=== PATIENT | female | born 1985 | race Caucasian/White ===

== ENCOUNTER 2019-05-03 11:18 | Outpatient (CLI) | payer SELFPAY ==
[2019-05-03 12:22] VITALS: BP 127/77; PULSE 81; RESP 16; TEMP 97.5
[2019-05-03] MEDS ORDERED: BETAMET ACET-BETAMETH SOD PHOS 6 MG/ML VIAL IM SCH (13:30)
--- NOTE | 2019-05-12 13:29 | P.MSEPDOC ---
Presenting Problems - Arrival Data Date of Arrival on Unit: 05/03/19 Time of Arrival on Unit: 11:18 Mode of Transport: Ambulatory - Complaint OB-Reason for Admission/Chief Complaint: Possible Onset of Labor Medical History - Information : 1 Para: 0 Term: 0 : 0 Abortions: Spontaneous or Elective: 0 Number of Living Children: 0 - Gestational Age Gestational Age by GREGORIA (wks/days): 35 Weeks and 0 Days Review of Systems - Review of Systems Constitutional: No problems Breast: No problems ENT: No problems Cardiovascular: No problems Respiratory: No problems Gastrointestinal: No problems Genitourinary: No problems Musculoskeletal: No problems Neurological: No problems Skin: No problems Vital Signs - Temperature Temperature: 97.5 F Temperature Source: Oral - Pulse Right Brachial Pulse Rate: 81 Pulse Assessment Method: Automatic Cuff - Respirations Respiratory Rate: 16 Oxygen Delivery Method: Room Air - Blood Pressure Right Arm Blood Pressure: 127/77 Blood Pressure Mean: 93 Blood Pressure Source: Automatic Cuff Medical Screen Scoring (Pre) - Cervical Exam Dilation: 0 cm = 0 Membranes: Intact - Uterine Contractions Frequency: < 36 weeks = 6 Duration: N/A - Maternal Vital Signs Maternal Temperature: N/A Maternal Blood Pressure: N/A Signs of Preeclampsia: N/A Maternal Respirations: N/A - Maternal Trauma Maternal Trauma: N/A - Assessment - Baby A Baseline FHR: 130 Heart Rate - NICHD Category: Category I (Normal) = 0 NST: Reactive Position: N/A Station: N/A - Total Score - Baby A Total Score - Baby A: 6 - Total Score - Baby B Total Score - Baby B: 6 - Total Score - Baby C Total Score - Baby C: 6 - Level of Risk - Baby A Level of Risk - Baby A: Medium (6-9) - Level of Risk - Baby B Level of Risk - Baby B: Medium (6-9) - Level of Risk - Baby C Level of Risk - Baby C: Medium (6-9) Physician Notification (Pre) - Physician Notified Spoke With: Dr. Campos New Order Received: No - Notification Comment Comment: FFN positive result from lab. no change in cervix and pt 35 weeks gestation. may go home and follow up with Dr. Campos tomorrow Physician Notification (Post) - Physician Notified Physician Notified Date: 05/03/19 Physician Notified Time: 13:10 Spoke With: Dr Campos New Order Received: Yes - Notification Comment Comment: FFN positive no change in cervix pt received 1 dose of clestone and to return for second dose in 24 hrs and to keep scheduled appoinment with Dr Campos tomorrow Disposition - Disposition OB Disposition: Discharge to home Discharge Date: 05/03/19 Discharge Time: 13:30 I agree with the RN Medical Screening Exam: Yes Risk & Benefit of care provided described in d/c instruction: Yes Diagnosis: FALSE LABOR BEFORE 37 COMPLETED WEEKS OF GEST, THIRD TRI
== END 2019-05-03 13:30 | disposition home or self-care (01) ==
LOC: FBPOP 11:18
PROVIDERS: ATTEND Obstetrics & Gynecology
DX: O47.03 False labor before 37 completed weeks of gestation, third trimester (principal); Z3A.35 35 weeks gestation of pregnancy
CPT/HCPCS: 59025; 99214; 96372; 82731; J0702

== ENCOUNTER 2019-05-04 13:31 | Outpatient (CLI) | payer SELFPAY ==
[2019-05-04] MEDS ORDERED: BETAMET ACET-BETAMETH SOD PHOS 6 MG/ML VIAL IM SCH (14:00)
== END 2019-05-04 14:20 | disposition home or self-care (01) ==
LOC: FBPOP 13:31
PROVIDERS: ATTEND Obstetrics & Gynecology
DX: O60.00 Preterm labor without delivery, unspecified trimester (principal); Z3A.00 Weeks of gestation of pregnancy not specified
CPT/HCPCS: 96372; J0702

== ENCOUNTER 2019-05-13 11:27 | Outpatient (CLI) | payer SELFPAY ==
[2019-05-13 13:09] VITALS: BP 127/77; PULSE 89; RESP 16; TEMP 97.5
--- NOTE | 2019-05-22 08:05 | P.MSEPDOC ---
Presenting Problems - Arrival Data Date of Arrival on Unit: 05/13/19 Time of Arrival on Unit: 11:27 Mode of Transport: Ambulatory - Complaint OB-Reason for Admission/Chief Complaint: Possible Onset of Labor, Vaginal Bleeding Medical History - Information : 2 Para: 0 Term: 0 : 0 Abortions: Spontaneous or Elective: 0 Number of Living Children: 0 - Gestational Age Gestational Age by GREGORIA (wks/days): 36 Weeks and 3 Days Review of Systems - Review of Systems Constitutional: No problems Breast: No problems ENT: No problems Cardiovascular: No problems Respiratory: No problems Gastrointestinal: No problems Genitourinary: No problems Musculoskeletal: No problems Neurological: No problems Skin: No problems Vital Signs - Temperature Temperature: 97.5 F Temperature Source: Temporal Artery Scan - Pulse Right Brachial Pulse Rate: 89 Pulse Assessment Method: Automatic Cuff - Respirations Respiratory Rate: 16 Oxygen Delivery Method: Room Air O2 Sat by Pulse Oximetry: 98 - Blood Pressure Right Arm Blood Pressure: 127/77 Blood Pressure Mean: 93 Blood Pressure Source: Automatic Cuff Medical Screen Scoring (Pre) - Cervical Exam Dilation: 1-3 cm = 1 Membranes: Intact - Uterine Contractions Frequency: > 5 minutes apart = 1 Duration: N/A Intensity: N/A - Maternal Vital Signs Maternal Temperature: N/A Maternal Blood Pressure: N/A Signs of Preeclampsia: N/A Maternal Respirations: N/A - Assessment - Baby A Baseline FHR: 145 Heart Rate - NICHD Category: Category I (Normal) = 0 NST: Reactive Position: N/A Station: N/A - Total Score - Baby A Total Score - Baby A: 2 - Total Score - Baby B Total Score - Baby B: 2 - Total Score - Baby C Total Score - Baby C: 2 - Level of Risk - Baby A Level of Risk - Baby A: Low (0-5) - Level of Risk - Baby B Level of Risk - Baby B: Low (0-5) - Level of Risk - Baby C Level of Risk - Baby C: Low (0-5) Physician Notification (Pre) - Physician Notified Physician Notified Date: 05/13/19 Physician Notified Time: 12:08 New Order Received: Yes - Notification Comment Comment: Dr. Campos given report on pt in tr. Pt c/o. VS WNL. Vag exam of fingertip/thick/high. Orders recieved to perform vag exam after one hour. if no change to d/c pt to home. Disposition - Disposition OB Disposition: Discharge to home Discharge Date: 05/13/19 Discharge Time: 12:55 I agree with the RN Medical Screening Exam: Yes Risk & Benefit of care provided described in d/c instruction: Yes Diagnosis: FALSE LABOR AT OR AFTER 37 COMPLETED WEEKS OF GESTATION
== END 2019-05-13 12:55 | disposition home or self-care (01) ==
LOC: FBPOP 11:27
PROVIDERS: ATTEND Obstetrics & Gynecology
DX: O47.03 False labor before 37 completed weeks of gestation, third trimester (principal); Z3A.36 36 weeks gestation of pregnancy
CPT/HCPCS: 59025; 99213

== ENCOUNTER 2019-05-15 12:32 | Inpatient (IN) | payer OTHER ==
[2019-05-15] MEDS ORDERED: METHYLERGONOVINE 0.2 MG/ML 1 ML AMP IM PRN (13:26)
[2019-05-15] MEDS ORDERED: CLINDAMYCIN 900 MG in DEXTROSE 5% IN WATER 50 ML IVPB STA ×2 (13:26)
[2019-05-15] MEDS ORDERED: OXYTOCIN 10 UNIT/ML 1 ML VIAL IM PRN (13:26)
[2019-05-15] MEDS ORDERED: LIDOCAINE 0.5% (PF) 5 MG/ML (50 ML SDV) SQ PRN (13:26)
[2019-05-15] MEDS ORDERED: CARBOPROST TROMETHAMINE 250 MCG/ML 1 ML AMP IM PRN (13:26)
[2019-05-15] MEDS ORDERED: TERBUTALINE 1 MG/ML VIAL SQ PRN (13:26)
[2019-05-15] MEDS ORDERED: OXYTOCIN 30 UNITS/500 ML NS 30 UNIT in SALINE 1 500ML.BAG IV SCH (13:30)
[2019-05-15] MEDS: LACTATED RINGERS 1,000 ML IV SCH ×3 (13:43→21:18)
[2019-05-15 14:01] LABS: Basophils % (A) 0 %; Eosinophils # (A) 0.2 k/uL (0-0.7); Eosinophils % (A) 1 %; HCT 38.2 % (34.0-46.0); HGB 12.3 gm/dL (11.4-16.0); Lymphocytes # (A) 1.9 k/uL (1.0-4.8); Lymphocytes % (A) 10 %; MCH 29.1 pg (25.0-35.0); MCHC 32.3 g/dL (31.0-37.0); MCV 90.2 fL (80.0-100.0); Mean Platelet Volume 9.6; Monocytes % (A) 5 %; Neutrophils # (A) 15.1 k/uL (1.3-7.7); Neutrophils % (A) 82 %; Platelet Count 264 k/uL (150-450); RBC 4.23 m/uL (3.80-5.40); RDW 13.1 % (11.5-15.5); WBC 18.5 k/uL (3.8-10.6)
[2019-05-15] MEDS ORDERED: BUTORPHANOL 1 MG/ML 1 ML VIAL IV PRN (18:25)
[2019-05-15] MEDS ORDERED: ROPIVACAINE 100 MG, fentaNYL (PF) 200 MCG in SODIUM CHLORIDE 0.9% 76 ML EPIDURAL ONE (20:51)
[2019-05-15] MEDS: CLINDAMYCIN 900 MG in DEXTROSE 5% IN WATER 50 ML IVPB SCH ×2 (21:23)
--- NOTE | 2019-05-16 00:28 | P.HPOB ---
History of Present Illness H&P Date: 05/15/19 Chief Complaint: SROM 33 year old presents at 35 weeks and 5 days with spontaneous rupture membranes. Her cervix is 1 cm dilated, 90% effaced, and -2 station. She is co ntracting irregularly and hurting with them. heart tones 130 with moderate variability and reactive. 2 weeks ago she did have a positive fibronectin and was given a course of Celestone. Review of Systems All systems: negative Constitutional: Denies chills, Denies fever Eyes: denies blurred vision, denies pain Ears, nose, mouth and throat: Denies headache, Denies sore throat Cardiovascular: Denies chest pain, Denies shortness of breath Respiratory: Denies cough Gastrointestinal: Denies abdominal pain, Denies diarrhea, Denies nausea, Denies vomiting Genitourinary: Denies dysuria, Denies hematuria Musculoskeletal: Denies myalgias Integumentary: Denies pruritus, Denies rash Neurological: Denies numbness, Denies weakness Psychiatric: Denies anxiety, Denies depression Endocrine: Denies fatigue, Denies weight change Past Medical History Past Medical History: Asthma Additional Past Medical History / Comment(s): Obstetric history: First was a elective termination. This is her second and she's had care with Dr. Benítez since the first trimester. Blood type is A+, antibodies negative, rubella immune, RPR nonreactive, hepatitis B negative, HIV nonreactive, toxoplasmosis negative. Normal anatomy ultrasound normal 1 hour glucose tolerance test. History of Any Multi-Drug Resistant Organisms: None Reported Past Surgical History: Bowel Resection, Orthopedic Surgery Past Anesthesia/Blood Transfusion Reactions: No Reported Reaction Past Psychological History: No Psychological Hx Reported Smoking Status: Current every day smoker Past Drug Use History: Heroin Additional Drug Use History / Comment(s): Hx of heroin use 7 years ago - Past Family History Mother Family Medical History: Cancer, Diabetes Mellitus Medications and Allergies Home Medications Medication Instructions Recorded Confirmed Type Omeprazole Magnesium [PriLOSEC OTC] 20 mg PO ONCE 05/03/19 05/15/19 History Pnv No.95/Ferrous Fum/Folic AC 1 each PO DAILY 05/03/19 05/15/19 History [ Multivitamin Tablet] Allergies Allergy/AdvReac Type Severity Reaction Status Date / Time amoxicillin Allergy Rash/Hives Verified 05/13/19 11:39 Latex, Natural Rubber Allergy Rash/Hives Verified 05/13/19 11:39 Exam Osteopathic Statement: *. No significant issues noted on an osteopathic structural exam other than those noted in the History and Physical/Consult. Vital Signs Temp Pulse Resp BP Pulse Ox 05/15/19 13:43 97.2 F L 83 16 133/68 98 05/15/19 13:24 97.2 F L 83 16 133/68 Intake and Output 05/15/19 05/15/19 05/16/19 14:59 22:59 06:59 Intake Total 2000 Output Total 200 Balance 1800 Intake: Intake, IV Titration 2000 Amount Lactated Ringers 1,000 ml 2000 @ 125 mls/hr IV .Q8H LOGAN Rx#:[id number] Output: Urine 200 Other: # Voids 1 1 Weight 62.596 kg Heart: Regular rate and rhythm Lungs: Clear to auscultation bilaterally Abdomen: Soft, nontender Extremities: Negative Homans sign Results Result Diagrams: 05/15/19 13:40 Abnormal Lab Results - Last 24 Hours (Table) 05/15/19 Range/Units 13:40 WBC 18.5 H (3.8-10.6) k/uL Neutrophils # 15.1 H (1.3-7.7) k/uL Assessment and Plan (1) Spontaneous rupture of membranes Current Visit: Yes Status: Acute Code(s): LKN7281 - SNOMED Code(s): 991196109 (2) labor Current Visit: Yes Status: Acute Code(s): O60.00 - LABOR WITHOUT DELIVERY, UNSPECIFIED TRIMESTER SNOMED Code(s): 1089477 Plan: 1. I'll give her antibiotics for GBS prophylaxis given the status 2. Expectant management with Pitocin augmentation if necessary 3. Anticipate normal vaginal delivery
[2019-05-16] MEDS: LACTATED RINGERS 1,000 ML IV SCH (01:47)
[2019-05-16] MEDS ORDERED: CITRIC ACID-SODIUM CITRATE 15 ML CUP PO ONE (04:25)
[2019-05-16] MEDS: CLINDAMYCIN 900 MG in DEXTROSE 5% IN WATER 50 ML IVPB SCH ×2 (04:34)
[2019-05-16] MEDS ORDERED: ROPIVACAINE 5MG/ML 20ML VIAL ONE (04:55)
[2019-05-16] MEDS ORDERED: fentaNYL (PF) 50 MCG/ML 5 ML AMP ONE (04:55)
[2019-05-16] MEDS ORDERED: ePHEDrine SULFATE/0.9% NACL/PF 50 MG/5 ML SYRINGE IV ONE (04:55)
[2019-05-16] MEDS ORDERED: ONDANSETRON 4 MG/2 ML VIAL ONE (04:55)
[2019-05-16] MEDS ORDERED: SODIUM CHLORIDE 0.9% 100 ML BAG ONE (04:55)
[2019-05-16] MEDS ORDERED: MORPHINE SULFATE (PF) 0.3 MG/0.3 ML SYR ONE (04:55)
[2019-05-16] MEDS ORDERED: ONDANSETRON 4 MG/2 ML VIAL IVP PRN (05:19)
[2019-05-16] MEDS ORDERED: diphenhydrAMINE 50 MG/ML 1 ML VIAL IVP PRN ×3 (05:19→05:39)
[2019-05-16] MEDS ORDERED: NALOXONE 0.4 MG/ML 1 ML VIAL IV PRN ×2 (05:19→05:39)
[2019-05-16] MEDS ORDERED: MORPHINE SULFATE 2 MG/ML SYRINGE IVP PRN (05:19)
[2019-05-16] MEDS ORDERED: diphenhydrAMINE 50 MG CAP PO PRN (05:39)
[2019-05-16] MEDS ORDERED: SIMETHICONE 80 MG CHEWABLE PO PRN (05:39)
[2019-05-16] MEDS ORDERED: LANOLIN CREAM 5 GM TUBE TOPICAL PRN (05:39)
[2019-05-16] MEDS ORDERED: ACETAMINOPHEN TAB 325 MG TAB PO PRN (05:39)
[2019-05-16] MEDS ORDERED: diphenhydrAMINE 25 MG CAP PO PRN (05:39)
[2019-05-16] MEDS ORDERED: METOCLOPRAMIDE 5 MG/ML 2 ML VIAL IVP PRN (05:39)
[2019-05-16] MEDS ORDERED: ZOLPIDEM 5 MG TAB PO PRN (05:39)
--- NOTE | 2019-05-16 05:44 | P.OP ---
Date of Procedure: 05/16/19 Preoperative Diagnosis: 1. at 35 weeks and 6 days 2. Spontaneous rupture membranes 3. labor 4. Arrest of descent Postoperative Diagnosis: 1. at 35 weeks and 6 days 2. Spontaneous rupture membranes 3. labor 4. Arrest of descent 5. Cephalopelvic disproportion Procedure(s) Performed: Primary low transverse Anesthesia: epidural Surgeon: Funmi Olivares [employer] Loan Processing Clerk #1: Lorraine Zhou Estimated Blood Loss (ml): 200 IV fluids (ml): 500 Urine output (ml): 500 Pathology: other (Placenta) Condition: stable Disposition: floor Indications for Procedure: 33-year-old presented at 35 weeks and 5 days with spontaneous rupture membranes around 11:00 in the morning. She presented in the afternoon and was 1 cm dilated, 90% effaced, and -2 station. She is mika irregularly. heart tones were 1:30 with moderate variability and reactive. She did start to make some cervical change but then Pitocin augmentation was also added. When she is uncomfortable at 3 cm she took an epidural and was very comfortable. Her cervix did dilate to 9/[address] this way for over 3 hours. We tried to push past this but she did have some decelerations and the head was not moving. Informed consent was obtained and section was called. Operative Findings: Viable Apgars 8, 9, weight 6 lbs. 2 oz. Description of Procedure: Patient was taken to the operating room where epidural anesthesia was found be adequate. She was prepped and draped in normal sterile fashion in dorsal supine position with a leftward tilt. Pfannenstiel skin incision was made the scalpel and carried through to the underlying layer of fascia with the scalpel. Fascia was incised in midline and carried bilaterally with the Govea scissors. The superior aspect of the fascial incision was grasped with [place] clamps elevated and the underlying rectus muscles dissected off with the Govea's. Attention was then turned to inferior aspect of same incision which in a similar fashion was grasped tented up and the underlying rectus muscles dissected off with the Govea's. The rectus muscles were the midline and the peritoneum was identified tented up and entered sharply with the scalpel. The incision was extended superiorly and inferiorly with good visualization of the bladder. The bladder blade was inserted and the vesicouterine peritoneum was incised the [place]zen[place]ums then carried bilaterally and bladder flap created digitally. A low transverse incision was then made on the uterus with the scalpel. This was carried bilaterally and digital manner. 's head delivered atraumatically, nose and mouth bulb suctioned, cord clamped and cut, infant handed off to waiting nurses. Apgars 8,9, weight 6 lbs. 2 oz. Placenta delivered manually, intact with three-vessel cord. The uterus is exteriorized and cleared of all clots and debris. The uterine incision was closed with 0 Vicryl in a running l ocked fashion. Second layer of the same sutures used in imbricating fashion to obtain excellent hemostasis. Bladder flap was then reapproximated using 2-0 Vicryl in a running fashion. Both ovaries and tubes appeared normal. The uterus was placed back into the abdomen. The peritoneum was reapproximated using 2-0 Vicryl in a running fashion. The muscles were reapproximated using 2- 0 Vicryl in interrupted fashion. The fascia was reapproximated using 0 Vicryl in a running fashion. The subcutaneous tissues closed with 3-0 Vicryl running fashion. The skin was closed gris. Patient tolerated the procedure well, sponge and instrument counts were correct times 2 and she was taken to the recovery room in stable condition.
[2019-05-16] MEDS ORDERED: OXYTOCIN 20 UNITS/1000 ML NS 1,000 ML IV SCH (05:45)
[2019-05-16] MEDS: SENNOSIDES-DOCUSATE SODIUM 1 EACH TAB PO SCH ×2 (08:35→20:21)
[2019-05-16] MEDS: KETOROLAC 30 MG/ML 1 ML VIAL IVP PRN ×2 (10:12→18:34)
[2019-05-16] MEDS: HYDROcodone/APAP 7.5-325MG 1 EACH TAB PO PRN (15:55)
[2019-05-17] MEDS: HYDROcodone/APAP 7.5-325MG 1 EACH TAB PO PRN (00:05)
[2019-05-17] MEDS: KETOROLAC 30 MG/ML 1 ML VIAL IVP PRN (02:57)
--- NOTE | 2019-05-17 06:49 | P.PN ---
Progress Note - Text Progress Note Date: 05/17/19 Patient doing well. Ambulating without weakness or paresthesia. Minimal headache. Pain controlled. + Pruritis VSS Back - spinal site c/d A/P POD#1 s/p with spinal duramorph - Continue Benadryl - Consider Atarax
[2019-05-17 07:10] LABS: Basophils # (A) 0.1 k/uL (0-0.2); Basophils % (A) 0 %; Eosinophils # (A) 0.2 k/uL (0-0.7); Eosinophils % (A) 1 %; HCT 31.4 % (34.0-46.0); HGB 10.6 gm/dL (11.4-16.0); Lymphocytes # (A) 1.9 k/uL (1.0-4.8); Lymphocytes % (A) 11 %; MCH 30.3 pg (25.0-35.0); MCHC 33.6 g/dL (31.0-37.0); Mean Platelet Volume 9.8; Monocytes # (A) 1.1 k/uL (0-1.0); Monocytes % (A) 7 %; Neutrophils # (A) 13.6 k/uL (1.3-7.7); Neutrophils % (A) 79 %; Platelet Count 198 k/uL (150-450); RBC 3.49 m/uL (3.80-5.40); WBC 17.1 k/uL (3.8-10.6)
[2019-05-17] MEDS: SENNOSIDES-DOCUSATE SODIUM 1 EACH TAB PO SCH (08:00)
[2019-05-17] MEDS ORDERED: Acetaminophen-Codeine 300-30mg TAB PO PRN (08:53)
--- NOTE | 2019-05-17 08:53 | P.PNOBGPC ---
Subjective - Subjective Principal diagnosis: S/P 1*LTCS POD #1 Interval history: Patient seen and examined. Denies nausea, vomiting, chest pain, sugars of breath or calf pain. Her pain is controlled and she is tolerating regular diet, passing flatus. She is ambulating and voiding without difficulty. Patient reports: Reports appetite normal, Reports voiding normally, Reports pain well controlled, Reports ambulating normally [place]: doing well Objective - Vital Signs Latest vital signs: Vital Signs Temp Pulse Resp BP Pulse Ox 05/17/19 00:00 98.3 F 72 16 118/64 99 05/16/19 20:00 98.2 F 78 16 116/62 100 05/16/19 18:00 16 97 05/16/19 16:00 98.1 F 84 16 105/61 96 05/16/19 14:00 16 96 05/16/19 12:00 97.9 F 76 16 102/63 100 05/16/19 10:19 98 05/16/19 10:00 16 - Exam Lungs: bilateral: normal Chest: Normal S1, Normal S2 Extremities: Present: normal Abdomen: Present: normal appearance, soft. Absent: distention, tenderness Incision: Present: normal, dry, intact Uterus: Present: normal, firm - Labs Labs: Abnormal Lab Results - Last 24 Hours (Table) 05/17/19 Range/Units 06:50 WBC 17.1 H (3.8-10.6) k/uL RBC 3.49 L (3.80-5.40) m/uL Hgb 10.6 L (11.4-16.0) gm/dL Hct 31.4 L (34.0-46.0) % Neutrophils # 13.6 H (1.3-7.7) k/uL Monocytes # 1.1 H (0-1.0) k/uL Assessment and Plan (1) Spontaneous rupture of membranes Current Visit: Yes Status: Resolved Code(s): MHO5701 - SNOMED Code(s): 419238806 (2) labor Current Visit: Yes Status: Resolved Code(s): O60.00 - LABOR WITHOUT DELIVERY, UNSPECIFIED TRIMESTER SNOMED Code(s): 4420083 (3) Status post primary low transverse section Current Visit: Yes Status: Acute Code(s): Z98.891 - HISTORY OF UTERINE SCAR FROM PREVIOUS SURGERY SNOMED Code(s): 921010732 Plan: 1. Increase ambulation 2. Continue pain control
[2019-05-17] MEDS: IBUPROFEN 600 MG TAB PO PRN (11:00)
[2019-05-17] MEDS: Acetaminophen-Codeine 300-30mg TAB PO PRN (18:37)
[2019-05-18] MEDS: IBUPROFEN 600 MG TAB PO PRN (00:34)
[2019-05-18] MEDS: SENNOSIDES-DOCUSATE SODIUM 1 EACH TAB PO SCH ×2 (00:34→08:34)
--- NOTE | 2019-05-18 07:21 | P.DS ---
Providers Date of admission: 05/15/19 13:18 Expected date of discharge: 05/18/19 Attending physician: Brian Campos Primary care physician: Funmi Olivares - Discharge Diagnosis(es) (1) Spontaneous rupture of membranes Current Visit: Yes Status: Resolved (2) labor Current Visit: Yes Status: Resolved (3) Status post primary low transverse section Current Visit: Yes Status: Acute Hospital Course: Patient presented with spontaneous rupture of membranes and mika. She underwent Pitocin augmentation but had CPD and failure to descend. She underwent a primary low transverse without complication. Postoperatively her pain is controlled she is tolerating regular diet, passing flatus, denies nausea, vomiting or chest pain, shortness of breath or calf pain. She is ambulating voiding without difficulty. Her incision is clean, dry, intact with gris. She'll be discharged home postoperative day #2 in stable condition to follow-up with Dr. Campos in 1 week. Plan - Discharge Summary New Discharge Prescriptions: New Ibuprofen [Motrin] 600 mg PO Q6HR PRN #30 tab PRN Reason: Mild Pain Or Fever >= 100.5 Acetaminophen-Codeine 300-30mg [Tylenol w/codeine #3] 2 each PO Q6HR PRN #20 tab PRN Reason: Pain No Action Pnv No.95/Ferrous Fum/Folic AC [ Multivitamin Tablet] 1 each PO DAILY Omeprazole Magnesium [PriLOSEC OTC] 20 mg PO ONCE Discharge Medication List Omeprazole Magnesium [PriLOSEC OTC] 20 mg PO ONCE 05/03/19 [History] Pnv No.95/Ferrous Fum/Folic AC [ Multivitamin Tablet] 1 each PO DAILY 05/03/19 [History] Acetaminophen-Codeine 300-30mg [Tylenol w/codeine #3] 2 each PO Q6HR PRN #20 tab 05/18/19 [Rx] Ibuprofen [Motrin] 600 mg PO Q6HR PRN #30 tab 05/18/19 [Rx] Follow up Appointment(s)/Referral(s): Brian Campos DO [Doctor of Osteopathic Medicine] - 1 Week Discharge Disposition: HOME SELF-CARE
[2019-05-18] MEDS: Acetaminophen-Codeine 300-30mg TAB PO PRN ×2 (08:34→14:46)
[2019-05-18 16:28] VITALS: BP 118/67; PULSE 93; RESP 15; TEMP 98
== END 2019-05-18 18:15 | disposition home or self-care (01) | DRG 788 ==
LOC: FBPOP 12:32 → 4FBP 13:18
PROVIDERS: ADMIT Obstetrics & Gynecology; ATTEND Obstetrics & Gynecology
PROC: 10D00Z1 Extraction of Products of Conception, Low, Open Approach (ICD-10-PCS; principal; 2019-05-16 04:26)
DX: O60.14X0 Preterm labor third trimester with preterm delivery third trimester, not applicable or unspecified (principal); O62.1 Secondary uterine inertia; O33.9 Maternal care for disproportion, unspecified; O32.4XX0 Maternal care for high head at term, not applicable or unspecified; O99.334 Smoking (tobacco) complicating childbirth; F17.200 Nicotine dependence, unspecified, uncomplicated; O99.52 Diseases of the respiratory system complicating childbirth; O99.72 Diseases of the skin and subcutaneous tissue complicating childbirth; J45.909 Unspecified asthma, uncomplicated; L29.9 Pruritus, unspecified; K21.9 Gastro-esophageal reflux disease without esophagitis; O99.62 Diseases of the digestive system complicating childbirth; Z37.0 Single live birth; Z3A.35 35 weeks gestation of pregnancy; Z88.0 Allergy status to penicillin; Z83.3 Family history of diabetes mellitus; Z80.9 Family history of malignant neoplasm, unspecified
CPT/HCPCS: 59025; 84112; 85025; 86850; 86900; 86901; 88307; 99213

== ENCOUNTER 2019-08-07 19:09 | Emergency (ER) | payer OTHER ==
[2019-08-07 19:14] VITALS: BP 146/97; PULSE 96; RESP 20; TEMP 97.9
--- NOTE | 2019-08-07 19:29 | ED ---
General Adult HPI - General Chief complaint: Recheck/Abnormal Lab/Rx Stated complaint: Drug Testing Time Seen by Provider: 08/07/19 19:16 Source: patient, police Mode of arrival: ambulatory Limitations: no limitations - History of Present Illness Initial comments: Patient is a 34-year-old female presenting to the emergency department for a urine drug screen. Patient is accompanied by police. Patient states that her baby a few hours ago and she is required to do a urine drug screen from CPS. CPS is here as well. She denies any medical conditions. She denies any drug use. There are no other complaints. She denies fever, chills. On arrival to ER, vital signs are stable. - Related Data Home Medications Medication Instructions Recorded Confirmed Omeprazole Magnesium [PriLOSEC OTC] 20 mg PO ONCE 05/03/19 05/15/19 Pnv No.95/Ferrous Fum/Folic AC 1 each PO DAILY 05/03/19 05/15/19 [ Multivitamin Tablet] Previous Rx's Medication Instructions Recorded Acetaminophen-Codeine 300-30mg 2 each PO Q6HR PRN #20 tab 05/18/19 [Tylenol w/codeine #3] Ibuprofen [Motrin] 600 mg PO Q6HR PRN #30 tab 05/18/19 Allergies Allergy/AdvReac Type Severity Reaction Status Date / Time amoxicillin Allergy Rash/Hives Verified 08/07/19 19:14 Latex, Natural Rubber Allergy Rash/Hives Verified 08/07/19 19:14 Review of Systems ROS Statement: Those systems with pertinent positive or pertinent negative responses have been documented in the HPI. ROS Other: All systems not noted in ROS Statement are negative. Past Medical History Past Medical History: Asthma Additional Past Medical History / Comment(s): Obstetric history: First was a elective termination. This is her second and she's had care with Dr. Benítez since the first trimester. Blood type is A+, antibodies negative, rubella immune, RPR nonreactive, hepatitis B negative, HIV nonreactive, toxoplasmosis negative. Normal anatomy ultrasound normal 1 hour glucose tolerance test. History of Any Multi-Drug Resistant Organisms: None Reported Past Surgical History: Bowel Resection, Orthopedic Surgery Past Anesthesia/Blood Transfusion Reactions: No Reported Reaction Past Psychological History: Anxiety, Depression Smoking Status: Current every day smoker Past Alcohol Use History: None Reported Past Drug Use History: Heroin, Marijuana - Past Family History Mother Family Medical History: Cancer, Diabetes Mellitus General Exam - General Exam Comments Initial Comments: GENERAL: No acute distress. HEAD: Atraumatic, normocephalic. EYES: Pupils equal round and reactive to light, extraocular movements intact, sclera anicteric, conjunctiva are normal. ENT: Moist mucous membranes. NECK: Normal range of motion, supple without lymphadenopathy or JVD. LUNGS: Breath sounds clear to auscultation bilaterally and equal. No wheezes rales or rhonchi. HEART: Regular rate and rhythm without murmurs, rubs or gallops. ABDOMEN: Soft, nontender, normoactive bowel sounds. No guarding, no rebound. No masses appreciated. : Deferred EXTREMITIES: Normal range of motion, no pitting or edema. No clubbing or cyanosis. NEUROLOGICAL: Normal speech, normal gait. PSYCH: Normal mood, normal affect. SKIN: Warm, Dry, normal turgor, no rashes or lesions noted. Limitations: no limitations Course Vital Signs 08/07/19 19:11 Temperature 97.9 F Pulse Rate 96 Respiratory 20 Rate Blood Pressure 146/97 O2 Sat by Pulse 99 Oximetry Medical Decision Making - Medical Decision Making Patient is a 34-year-old female here for a urine drug screen from an open CPS case. Police and CPS accompanied her. Urine drug screen is positive for amphetamines and marijuana. Patient did sign a medical release form that was witnessed by 2 RNs. Results were given to patient, please, CPS worker. Patient is discharged. - Lab Data Lab Results 08/07/19 Range/Units 19:23 Urine Opiates Screen Not Detected (NotDetected) Ur Oxycodone Screen Not Detected (NotDetected) Urine Methadone Screen Not Detected (NotDetected) Ur Propoxyphene Screen Not Detected (NotDetected) Ur Barbiturates Screen Not Detected (NotDetected) U Tricyclic Antidepress Not Detected (NotDetected) Ur Phencyclidine Scrn Not Detected (NotDetected) Ur Amphetamines Screen Detected H (NotDetected) U Methamphetamines Scrn Not Detected (NotDetected) U Benzodiazepines Scrn Not Detected (NotDetected) Urine Cocaine Screen Not Detected (NotDetected) U Marijuana (THC) Screen Detected H (NotDetected) Disposition Clinical Impression: Encounter for drug screening Disposition: HOME SELF-CARE Condition: Stable Is patient prescribed a controlled substance at d/c from ED?: No Referrals: None,Stated [Primary Care Provider] - 1-2 days
[2019-08-07 19:50] LABS: Amphetamine Screen,Urine Detected (NotDetected); Barbiturate Screen,Urine Not Detected (NotDetected); Benzodiazepines Screen,Urine Not Detected (NotDetected); Cocaine Screen,Urine Not Detected (NotDetected); Methadone Screen, Urine Not Detected (NotDetected); Opiate Screen,Urine Not Detected (NotDetected); Oxycodone Screen, Urine Not Detected (NotDetected); Phencyclidine Screen,Urine Not Detected (NotDetected); Tricyclic Antidepressant,Urine Not Detected (NotDetected); Urn Cannabinoid Scrn Detected (NotDetected)
== END 2019-08-07 20:43 | disposition home or self-care (01) ==
LOC: EC 19:09
DX: R82.5 Elevated urine levels of drugs, medicaments and biological substances (principal); F17.200 Nicotine dependence, unspecified, uncomplicated; Z88.0 Allergy status to penicillin; Z91.040 Latex allergy status; Z79.899 Other long term (current) drug therapy
CPT/HCPCS: 80306; 99282

== ENCOUNTER → 2020-04-08 | Outpatient (CLI) | payer OTHER ==
[2020-04-08 12:31] LABS: Glucose 3 Hour, Gest 153 mg/dL
== END | disposition home or self-care (01) ==
LOC: LABWHC1 07:56
PROVIDERS: ATTEND Obstetrics & Gynecology
DX: O99.810 Abnormal glucose complicating pregnancy (principal)
CPT/HCPCS: 36415; 82951; 82952

== ENCOUNTER 2020-06-13 09:41 | Inpatient (IN) | payer OTHER ==
[2020-06-13] MEDS ORDERED: CITRIC ACID-SODIUM CITRATE 15 ML CUP PO ONE (09:53)
[2020-06-13] MEDS ORDERED: LACTATED RINGERS 1,000 ML IV ONE (09:53)
[2020-06-13 11:01] LABS: Basophils % (A) 0 %; Eosinophils # (A) 0.2 k/uL (0-0.7); Eosinophils % (A) 2 %; HCT 30.6 % (34.0-46.0); Hypochromasia Slight; Lymphocytes % (A) 17 %; MCH 27.2 pg (25.0-35.0); MCHC 32.7 g/dL (31.0-37.0); MCV 83.2 fL (80.0-100.0); Mean Platelet Volume 11.1; Monocytes # (A) 0.8 k/uL (0-1.0); Monocytes % (A) 6 %; Neutrophils # (A) 8.7 k/uL (1.3-7.7); Neutrophils % (A) 73 %; Platelet Count 207 k/uL (150-450); RBC 3.68 m/uL (3.80-5.40); RDW 13.2 % (11.5-15.5); WBC 11.9 k/uL (3.8-10.6)
[2020-06-13 12:00] LABS: Amphetamine Screen,Urine Not Detected (NotDetected); Barbiturate Screen,Urine Not Detected (NotDetected); Benzodiazepines Screen,Urine Not Detected (NotDetected); Cocaine Screen,Urine Not Detected (NotDetected); Methadone Screen, Urine Not Detected (NotDetected); Opiate Screen,Urine Not Detected (NotDetected); Oxycodone Screen, Urine Not Detected (NotDetected); Phencyclidine Screen,Urine Not Detected (NotDetected); Tricyclic Antidepressant,Urine Not Detected (NotDetected); Urn Cannabinoid Scrn Detected (NotDetected)
[2020-06-13] MEDS ORDERED: MORPHINE SULFATE (PF) 0.3 MG/0.3 ML SYR ONE (12:23)
[2020-06-13] MEDS ORDERED: ePHEDrine SULFATE/0.9% NACL/PF 50 MG/5 ML SYRINGE IV ONE (12:23)
[2020-06-13] MEDS ORDERED: OXYTOCIN 10 UNIT/ML 1 ML VIAL ONE (12:23)
[2020-06-13] MEDS ORDERED: KETOROLAC 15 MG/ML 1 ML VIAL ONE (12:23)
[2020-06-13] MEDS ORDERED: NALBUPHINE 10 MG/ML (1 ML AMP) ONE (12:23)
[2020-06-13] MEDS ORDERED: ONDANSETRON 4 MG/2 ML VIAL ONE (12:23)
[2020-06-13] MEDS ORDERED: diphenhydrAMINE 50 MG/ML 1 ML VIAL IVP PRN ×2 (13:22)
[2020-06-13] MEDS ORDERED: diphenhydrAMINE 25 MG CAP PO PRN (13:22)
[2020-06-13] MEDS ORDERED: KETOROLAC 15 MG/ML 1 ML VIAL IVP PRN (13:22)
[2020-06-13] MEDS ORDERED: ACETAMINOPHEN TAB 325 MG TAB PO PRN (13:22)
[2020-06-13] MEDS ORDERED: ONDANSETRON 4 MG/2 ML VIAL IVP PRN (13:22)
[2020-06-13] MEDS ORDERED: ZOLPIDEM 5 MG TAB PO PRN (13:22)
[2020-06-13] MEDS ORDERED: METOCLOPRAMIDE 5 MG/ML 2 ML VIAL IVP PRN (13:22)
[2020-06-13] MEDS ORDERED: NALOXONE 0.4 MG/ML 1 ML VIAL IV PRN (13:22)
--- NOTE | 2020-06-13 13:25 | P.HPOB ---
History of Present Illness H&P Date: 06/13/20 Chief Complaint: Uterine at term: Prior section Patient is a 32-year-old at 39 weeks gestation who had prior sections last . The was, complicated by mycoplasma and Ureaplasma infection that was treated several times. She also is noted to have had a CT of the baby with her first delivery at approximately 3 months. 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 All questions are answered for her prior to proceeding to the operating room. She is followed up very closely with nonstress tests and monitoring her as well as had a maternal- medicine consult with the . heart tones are category 1 tracing prior to going to the operating room. Past Medical History Past Medical History: Asthma Additional Past Medical History / Comment(s): states no inhaler at this time History of Any Multi-Drug Resistant Organisms: None Reported Past Surgical History: Bowel Resection, Section, Orthopedic Surgery Additional Past Surgical History / Comment(s): left arm ORIF, rt foot metal in, now out Past Anesthesia/Blood Transfusion Reactions: No Reported Reaction Past Psychological History: Depression Smoking Status: Current every day smoker Past Alcohol Use History: None Reported Additional Past Alcohol Use History / Comment(s): less than 1/2 ppd Past Drug Use History: Heroin, Marijuana Additional Drug Use History / Comment(s): Hx of heroin use 8 years ago, occasional marijuana use, instructed to withhold 24 hrs prior to procedure - Past Family History Mother Family Medical History: Cancer, Diabetes Mellitus Medications and Allergies Home Medications Medication Instructions Recorded Confirmed Type Pnv No.95/Ferrous Fum/Folic AC 1 each PO DAILY 05/03/19 06/13/20 History [ Multivitamin Tablet] FLUoxetine HCL [PROzac] 20 mg PO DAILY 06/12/20 06/13/20 History Allergies Allergy/AdvReac Type Severity Reaction Status Date / Time amoxicillin Allergy Rash/Hives Verified 06/13/20 09:51 Latex, Natural Rubber Allergy Rash/Hives Verified 06/13/20 09:51 Exam Osteopathic Statement: *. No significant issues noted on an osteopathic structural exam other than those noted in the History and Physical/Consult. Vital Signs Temp Pulse Resp BP Pulse Ox 06/13/20 13:10 97.4 F L 83 18 119/58 98 06/13/20 10:15 96.9 F L 86 16 122/64 Intake and Output 06/12/20 06/13/20 06/13/20 22:59 06:59 14:59 Other: Voiding Method Indwelling Catheter Weight 71.668 kg - OBG Physical Exam Breast: both: normal (no masses) Abdomen: bowel sounds normal, no diffuse tenderness, no bruit present, no guarding noted, no hepatomegaly, no splenomegaly, no mass Vulva: both: normal Vagina: normal moisture, no discharge Cervix: no lesion, no discharge Uterus: normal size, normal contour Adnexa: both: normal Anus/Rectum: normal perianal skin, no rectal mass, no hemorrhoids, heme negative Results Result Diagrams: 06/13/20 10:29 Abnormal Lab Results - Last 24 Hours (Table) 06/13/20 06/13/20 Range/Units 10:29 11:29 WBC 11.9 H (3.8-10.6) k/uL RBC 3.68 L (3.80-5.40) m/uL Hgb 10.0 L (11.4-16.0) gm/dL Hct 30.6 L (34.0-46.0) % Neutrophils # 8.7 H (1.3-7.7) k/uL U Marijuana (THC) Screen Detected H (NotDetected)
[2020-06-13] MEDS ORDERED: LACTATED RINGERS 1,000 ML IV SCH (13:30)
[2020-06-13] MEDS: SENNOSIDES-DOCUSATE SODIUM 1 EACH TAB PO SCH (21:10)
[2020-06-14 06:02] LABS: Basophils # (A) 0.1 k/uL (0-0.2); Basophils % (A) 0 %; Eosinophils # (A) 0.3 k/uL (0-0.7); Eosinophils % (A) 2 %; HCT 33.8 % (34.0-46.0); HGB 10.6 gm/dL (11.4-16.0); Hypochromasia Moderate; Lymphocytes # (A) 1.9 k/uL (1.0-4.8); Lymphocytes % (A) 13 %; MCH 26.2 pg (25.0-35.0); MCHC 31.4 g/dL (31.0-37.0); MCV 83.5 fL (80.0-100.0); Mean Platelet Volume 10.5; Monocytes # (A) 1.2 k/uL (0-1.0); Monocytes % (A) 8 %; Neutrophils # (A) 11.2 k/uL (1.3-7.7); Neutrophils % (A) 75 %; Platelet Count 231 k/uL (150-450); RBC 4.05 m/uL (3.80-5.40); RDW 13.1 % (11.5-15.5); WBC 14.9 k/uL (3.8-10.6)
[2020-06-14] MEDS: HYDROcodone/APAP 7.5-325MG 1 EACH TAB PO PRN ×3 (07:49→21:41)
[2020-06-14] MEDS: SENNOSIDES-DOCUSATE SODIUM 1 EACH TAB PO SCH ×2 (09:00→19:21)
[2020-06-14] MEDS: diphenhydrAMINE 50 MG CAP PO PRN ×2 (09:00→19:21)
--- NOTE | 2020-06-14 10:37 | P.PN ---
Progress Note - Text Progress Note Date: 06/14/20 (834) Anesthesia S/p duramorph for c seciton Pt is doing well. VAS 2/10. No Nausea or vomiting. + Pruritis. Benedryl has been given. Gross lower extremity strength is intact. Patient was able to leave the floor unassisted. Afebrile. Answered all questions. H reg rate A non distended A: s/p c/s with duramorph P: your continued medical care
--- NOTE | 2020-06-14 12:43 | P.PNOBGPC ---
Subjective - Subjective Principal diagnosis: Status post repeat section post operative day #1 Interval history: Patient did have significant itching this morning. She was given a adhesive remover and was up to the shower. This did help along with then a drill. She is not passing flatus or bowel movement yet. She is ambulating. She is urinating without difficulty. Her pain is fairly well controlled. Patient reports: Reports appetite normal, Reports voiding normally, Reports pain well controlled Hardy: doing well (In level I nursery) Objective - Vital Signs Latest vital signs: Vital Signs Temp Pulse Resp BP Pulse Ox 06/14/20 08:00 98.2 F 80 17 138/77 06/14/20 04:00 98.1 F 69 15 118/71 98 06/14/20 00:00 98.0 F 66 16 112/70 99 06/13/20 20:00 97.9 F 66 16 117/64 98 06/13/20 15:10 97.0 F L 88 18 133/65 98 06/13/20 14:40 78 16 116/61 06/13/20 14:10 76 16 119/58 99 06/13/20 13:55 88 16 110/56 99 06/13/20 13:40 78 16 120/62 98 06/13/20 13:26 82 16 112/53 98 06/13/20 13:10 97.4 F L 83 18 119/58 98 Intake and Output 06/13/20 06/14/20 06/14/20 22:59 06:59 14:59 Intake Total 240 Output Total 330 Balance -330 240 Intake: Oral 240 Output: Urine 330 Uretheral (Nguyen) 180 Other: Voiding Method Indwelling Catheter - Exam Extremities: Present: normal. Absent: tenderness, edema Abdomen: Present: normal appearance, soft. Absent: distention, tenderness Incision: Present: normal, erythematous (Red rash noted on entire abdomen), dry, intact Uterus: Present: normal, firm. Absent: tenderness - Labs Labs: Abnormal Lab Results - Last 24 Hours (Table) 06/14/20 Range/Units 05:28 WBC 14.9 H (3.8-10.6) k/uL Hgb 10.6 L (11.4-16.0) gm/dL Hct 33.8 L (34.0-46.0) % Neutrophils # 11.2 H (1.3-7.7) k/uL Monocytes # 1.2 H (0-1.0) k/uL Assessment and Plan Assessment: Status post repeat section postoperative day #1 Plan: Continue with postoperative care. Will continue Benadryl as needed. Patient is encouraged to ambulate.
[2020-06-14] MEDS: IBUPROFEN 600 MG TAB PO PRN (18:12)
[2020-06-15] MEDS: IBUPROFEN 600 MG TAB PO PRN ×2 (00:07→06:36)
[2020-06-15 00:45] VITALS: RESP 16
[2020-06-15] MEDS: HYDROcodone/APAP 7.5-325MG 1 EACH TAB PO PRN (04:03)
--- NOTE | 2020-06-15 06:43 | P.DS ---
Providers Date of admission: 06/13/20 09:41 Expected date of discharge: 06/15/20 Attending physician: Brian Campos Primary care physician: Stated None Hospital Course: Is a 34-year-old female 3 para 1 at 39-0/7 weeks who presented for scheduled repeat section. She underwent a repeat low transverse section on 06/13/2020 and delivered a viable male infant with scores of 9 at 1 minute and 9 at 5 minutes and weight of 7 lbs. 0 oz. Her postoperative and course was complicated by some itching on day #1. This has resolved. She is passing flatus but no bowel movement yet. Her pain is well-controlled with ibuprofen and [place]. Lochia is decreasing. Her baby is in level I nursery. She states she would like to go home today even though her baby does need to stay longer. Vital signs are stable. Abdomen is soft with positive bowel sounds 4. Incision is clean dry and intact. Fundus is nontender. Extremities show negative Homans. Impression is status post repeat section postoperative day #2. Plan is to discharge home today. Routine postoperative instructions and instructions are given. Yonathan will be removed and Steri-Strips placed prior to discharge. She is instructed to follow-up in the office in approximately 1 week for a postoperative check and in 6 weeks for a check. She is advised to call the office if she has any further questions or concerns prior to her appointment time. She has been counseled regarding opioid use and has signed a consent form. She will be given prescriptions for ibuprofen and [place]. She is bottle feeding. Procedures: Repeat low transverse section on 06/13/2020 Patient Condition at Discharge: Stable Plan - Discharge Summary New Discharge Prescriptions: New Ibuprofen [Motrin] 600 mg PO Q6HR PRN #60 tab PRN Reason: Mild Pain Or Fever >= 100.5 HYDROcodone/APAP 7.5-325MG [[place] 7.5-325] 1 each PO Q6H PRN #28 tab PRN Reason: Severe Pain Continue Pnv No.95/Ferrous Fum/Folic AC [ Multivitamin Tablet] 1 each PO DAILY FLUoxetine HCL [PROzac] 20 mg PO DAILY Discharge Medication List Pnv No.95/Ferrous Fum/Folic AC [ Multivitamin Tablet] 1 each PO DAILY 12/19/19 [History] FLUoxetine HCL [PROzac] 20 mg PO DAILY 06/12/20 [History] HYDROcodone/APAP 7.5-325MG [[place] 7.5-325] 1 each PO Q6H PRN #28 tab 06/15/20 [Rx] Ibuprofen [Motrin] 600 mg PO Q6HR PRN #60 tab 06/15/20 [Rx] Follow up Appointment(s)/Referral(s): Brian Campos DO [Doctor of Osteopathic Medicine] - 1 Week Activity/Diet/Wound Care/Special Instructions: Instructions 1. Do not begin any exercise program for 3 weeks. 2. Do not resume sexual relations for 3 weeks or longer if uncomfortable. 3. You may take tub baths or showers at any time. 4. You may use tampons if desired after 3 weeks. 5. Keep the area of episiotomy (stitches) clean and dry. 6. If you are not nursing, wear a good fitting, supportive bra during the day and limit fluid intake for at least 1 week to prevent breast engorgement. 7. Call the office, [phone], within the next week to make appointment for your 6 week checkup if it has not already been made. 8. Report any of the following occurrences to the doctor promptly: a. Heavy, excessive bleeding b. Chills, fever c. Burning or frequency of urination d. Pain or redness and breasts if nursing e. Increasing pain or swelling in episiotomy (stitches). In addition to the above instructions, the following additional should be fol lowed: 1. No heavy lifting or straining (exercising) until after 6 week checkup. 2. Keep abdominal incision clean and dry: You may wear a dressing if more comfortable. 3. Make office appointment for 10 days after going home or as instructed by her doctor. Discharge Disposition: HOME SELF-CARE
[2020-06-15 06:53] LABS: Basophils # (A) 0.1 k/uL (0-0.2); Basophils % (A) 1 %; Eosinophils # (A) 0.5 k/uL (0-0.7); Eosinophils % (A) 5 %; HCT 30.3 % (34.0-46.0); HGB 9.6 gm/dL (11.4-16.0); Hypochromasia Moderate; Lymphocytes # (A) 2.4 k/uL (1.0-4.8); Lymphocytes % (A) 22 %; MCH 26.2 pg (25.0-35.0); MCHC 31.6 g/dL (31.0-37.0); Mean Platelet Volume 10.7; Monocytes # (A) 0.8 k/uL (0-1.0); Monocytes % (A) 8 %; Neutrophils # (A) 6.6 k/uL (1.3-7.7); Neutrophils % (A) 62 %; Platelet Count 208 k/uL (150-450); RBC 3.65 m/uL (3.80-5.40); RDW 13.2 % (11.5-15.5); WBC 10.7 k/uL (3.8-10.6)
[2020-06-15 08:44] VITALS: BP 115/70; PULSE 72; TEMP 98.3
== END 2020-06-15 11:00 | disposition home or self-care (01) | DRG 788 ==
LOC: 4FBP 09:41
PROVIDERS: ADMIT Obstetrics & Gynecology; ATTEND Obstetrics & Gynecology
PROC: 10D00Z1 Extraction of Products of Conception, Low, Open Approach (ICD-10-PCS; principal; 2020-06-13 12:00)
DX: O34.211 Maternal care for low transverse scar from previous cesarean delivery (principal); O99.344 Other mental disorders complicating childbirth; O99.52 Diseases of the respiratory system complicating childbirth; O99.334 Smoking (tobacco) complicating childbirth; L29.9 Pruritus, unspecified; J45.909 Unspecified asthma, uncomplicated; F32.9 Major depressive disorder, single episode, unspecified; F17.210 Nicotine dependence, cigarettes, uncomplicated; Z3A.39 39 weeks gestation of pregnancy; Z37.0 Single live birth; F11.11 Opioid abuse, in remission; Z83.3 Family history of diabetes mellitus; Z79.899 Other long term (current) drug therapy; Z88.0 Allergy status to penicillin; Z91.040 Latex allergy status
CPT/HCPCS: 80306; 85025; 86850; 86900; 86901; 88307

== ENCOUNTER 2022-02-08 10:13 | Outpatient (CLI) | payer OTHER ==
[2022-02-08 11:03] LABS: Basophils # (A) 0.1 k/uL (0-0.2); Basophils % (A) 1 %; Eosinophils # (A) 0.2 k/uL (0-0.7); Eosinophils % (A) 2 %; HCT 32.8 % (34.0-46.0); HGB 10.6 gm/dL (11.4-16.0); Hypochromasia Slight; Lymphocytes % (A) 18 %; MCH 27.7 pg (25.0-35.0); MCHC 32.3 g/dL (31.0-37.0); MCV 85.9 fL (80.0-100.0); Mean Platelet Volume 9.6; Monocytes # (A) 0.7 k/uL (0-1.0); Monocytes % (A) 6 %; Neutrophils # (A) 8.1 k/uL (1.3-7.7); Neutrophils % (A) 72 %; Platelet Count 272 k/uL (150-450); RBC 3.82 m/uL (3.80-5.40); RDW 12.9 % (11.5-15.5); WBC 11.2 k/uL (3.8-10.6)
[2022-02-08 11:22] LABS: ALT 20 U/L (4-34); AST 26 U/L (14-36); African American GFR (CKD) >90 (>60 ml/min/1.73 sqM); Blood Urea Nitrogen 6 mg/dL (7-17); LDH 567 U/L (313-618); Non-African American GFR(CKD) >90 (>60 ml/min/1.73 sqM); Uric Acid 4.2 mg/dL (3.7-7.4)
[2022-02-08 11:34] LABS: Prothrombin Time 10.9 sec (9.0-12.0)
[2022-02-08 11:45] LABS: Appearance,Urine Cloudy (Clear); Bacteria,Urine Many /hpf; Bilirubin,Urine Negative (Negative); Blood,Urine Negative (Negative); Color,Urine Light Yellow; Glucose,Urine (UA) Negative (Negative); Ketones,Urine Negative (Negative); Leukocyte Esterase,Urine Large (Negative); Mucus,Urine Rare /hpf; Nitrite,Urine Negative (Negative); PH, Urine 6.5 (5.0-8.0); Protein,Urine Negative (Negative); RBC,Urine 3 /hpf (0-5); Specific Gravity,Urine 1.006 (1.001-1.035); Squamous Epithelial Cell,Urine 22 /hpf (0-4); Urobilinogen,Urine <2.0 mg/dL (<2.0); WBC,Urine 10 /hpf (0-5)
[2022-02-08 11:46] LABS: Creatinine,Urine Random 25.6 mg/dL; Protein/Creatinine Ratio,Urine 0.625
[2022-02-08 13:40] VITALS: BP 138/95; PULSE 116; RESP 14; TEMP 98.2
== END 2022-02-08 12:12 | disposition home or self-care (01) ==
LOC: FBPOP 10:13
PROVIDERS: ATTEND Obstetrics & Gynecology
DX: O13.9 Gestational [pregnancy-induced] hypertension without significant proteinuria, unspecified trimester (principal); Z3A.35 35 weeks gestation of pregnancy; Z88.0 Allergy status to penicillin; Z91.040 Latex allergy status; F17.200 Nicotine dependence, unspecified, uncomplicated
CPT/HCPCS: 59025; 36415; 82570; 84156; 82565; 83615; 84450; 84460; 84520; 84550; 85025; 85384; 85610; 85730; 81001; G0463; 99215

== ENCOUNTER 2022-02-10 15:54 | Observation (INO) | payer OTHER ==
[2022-02-10 17:20] LABS: Basophils % (A) 0 %; Eosinophils # (A) 0.2 k/uL (0-0.7); Eosinophils % (A) 2 %; HCT 30.8 % (34.0-46.0); HGB 9.8 gm/dL (11.4-16.0); Hypochromasia Moderate; Lymphocytes % (A) 17 %; MCH 27.3 pg (25.0-35.0); MCHC 31.9 g/dL (31.0-37.0); MCV 85.6 fL (80.0-100.0); Mean Platelet Volume 10.1; Monocytes # (A) 0.7 k/uL (0-1.0); Monocytes % (A) 6 %; Neutrophils # (A) 8.5 k/uL (1.3-7.7); Neutrophils % (A) 73 %; Platelet Count 257 k/uL (150-450); RDW 12.8 % (11.5-15.5); WBC 11.6 k/uL (3.8-10.6)
[2022-02-10 17:23] LABS: Appearance,Urine Clear (Clear); Bacteria,Urine Occasional /hpf; Bilirubin,Urine Negative (Negative); Blood,Urine Negative (Negative); Color,Urine Colorless; Glucose,Urine (UA) Negative (Negative); Ketones,Urine Negative (Negative); Leukocyte Esterase,Urine Small (Negative); Nitrite,Urine Negative (Negative); PH, Urine 6.5 (5.0-8.0); Protein,Urine Negative (Negative); RBC,Urine <1 /hpf (0-5); Specific Gravity,Urine 1.004 (1.001-1.035); Squamous Epithelial Cell,Urine 2 /hpf (0-4); Urobilinogen,Urine <2.0 mg/dL (<2.0); WBC,Urine 9 /hpf (0-5)
[2022-02-10 17:30] LABS: Partial Thromboplastin Time 23.4 sec (22.0-30.0)
[2022-02-10 17:37] LABS: ALT 17 U/L (4-34); AST 22 U/L (14-36); African American GFR (CKD) >90 (>60 ml/min/1.73 sqM); Blood Urea Nitrogen 6 mg/dL (7-17); LDH 477 U/L (313-618); Non-African American GFR(CKD) >90 (>60 ml/min/1.73 sqM); Uric Acid 4.3 mg/dL (3.7-7.4)
[2022-02-10] MEDS ORDERED: LABETALOL 100 MG TAB PO PRN (17:57)
[2022-02-10] MEDS ORDERED: LABETALOL 100 MG TAB PO ONE (18:00)
[2022-02-11 04:27] VITALS: PULSE 82
[2022-02-11 08:24] VITALS: BP 140/72; RESP 76; TEMP 97.7
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
--- NOTE | 2022-02-11 08:43 | P.DS ---
Providers Date of admission: 02/10/22 18:16 Expected date of discharge: 02/11/22 Attending physician: Gerald Sharma Primary care physician: Stated None - Discharge Diagnosis(es) (1) 36 weeks gestation of Current Visit: Yes Status: Acute (2) Gestational hypertension Current Visit: Yes Status: Acute Hospital Course: the patient is a 36-year-old 4 para 1111 admitted at 36-0/7 weeks by good dating parameters. She is admitted secondary to labile and elevated blood pressures which had been present since earlier in the week. Laboratory workup on Tuesday and then again yesterday was stable with no evidence of preeclampsia. The patient was admitted for management of blood pressures and 23 hour observation with instructions to collect a 24 urine for protein. Her blood pressures remained stable with the labetalol added and the patient had no ongoing symptoms. heart rate tracing was category 1. The decision was made to discharge her to home to continue the collection of 24 urine and to continue labetalol 100 mg twice daily. She was instructed to continue to check her blood pressures on a regular basis and to call for any increasing symptoms such as headache, right upper quadrant pain, scotomata, or anything also concerned her. She understood her instructions and will follow up with me in approximately 3-4 days in the office. Procedures: #1. Serial blood pressures #2. Antihypertensive therapy #3. 24-hour urine collection for protein Patient Condition at Discharge: Stable Plan - Discharge Summary New Discharge Prescriptions: No Action Pnv No.95/Ferrous Fum/Folic AC [ Multivitamin Tablet] 1 each PO DAILY Omeprazole Magnesium [PriLOSEC OTC] 1 tab PO DAILY Aspirin 1 tab PO DAILY Discharge Medication List Pnv No.95/Ferrous Fum/Folic AC [ Multivitamin Tablet] 1 each PO DAILY 05/03/19 [History] Aspirin 1 tab PO DAILY 02/08/22 [History] Omeprazole Magnesium [PriLOSEC OTC] 1 tab PO DAILY 02/08/22 [History] Follow up Appointment(s)/Referral(s): Gerald Sharma MD [STAFF PHYSICIAN] - 1 Week Discharge Disposition: HOME SELF-CARE
[2022-02-11 19:03] LABS: Total Volume 24 Hour,Urine 3000 mls (800-1800)
[2022-02-11 19:18] LABS: Total Protein 24 Hour,Urine 450 mg/24hr (42.0-225.0)
[2022-02-11 19:22] LABS: 24-hr Urine Specific Gravity 1.007 (1.001-1.035)
== END 2022-02-11 09:03 | disposition home or self-care (01) ==
LOC: FBPOP 15:54 → 4FBP 18:16
PROVIDERS: ADMIT Obstetrics & Gynecology Obstetrics; ATTEND Obstetrics & Gynecology
DX: O13.3 Gestational [pregnancy-induced] hypertension without significant proteinuria, third trimester (principal); O99.513 Diseases of the respiratory system complicating pregnancy, third trimester; J45.909 Unspecified asthma, uncomplicated; O99.343 Other mental disorders complicating pregnancy, third trimester; F32.A Depression, unspecified; F41.9 Anxiety disorder, unspecified; O99.333 Smoking (tobacco) complicating pregnancy, third trimester; F17.210 Nicotine dependence, cigarettes, uncomplicated; Z3A.36 36 weeks gestation of pregnancy; Z79.82 Long term (current) use of aspirin; Z79.899 Other long term (current) drug therapy; Z88.0 Allergy status to penicillin; Z91.040 Latex allergy status; Z98.891 History of uterine scar from previous surgery; Z98.890 Other specified postprocedural states; Z83.3 Family history of diabetes mellitus; Z81.8 Family history of other mental and behavioral disorders
CPT/HCPCS: 59025; 81050; 82565; 82575; 83615; 84450; 84460; 84520; 84550; 85025; 85610; 85730; 81001; 84156; G0463; G0378 ×2; 99215

== ENCOUNTER 2022-02-23 17:11 | Outpatient (CLI) | payer OTHER ==
[2022-02-23 17:54] LABS: Appearance,Urine Clear (Clear); Bacteria,Urine Rare /hpf; Bilirubin,Urine Negative (Negative); Blood,Urine Negative (Negative); Color,Urine Light Yellow; Glucose,Urine (UA) Negative (Negative); Ketones,Urine Negative (Negative); Leukocyte Esterase,Urine Small (Negative); Mucus,Urine Rare /hpf; Nitrite,Urine Negative (Negative); PH, Urine 6.5 (5.0-8.0); Protein,Urine Negative (Negative); RBC,Urine 1 /hpf (0-5); Specific Gravity,Urine 1.008 (1.001-1.035); Squamous Epithelial Cell,Urine 5 /hpf (0-4); Urobilinogen,Urine <2.0 mg/dL (<2.0); WBC,Urine 5 /hpf (0-5)
[2022-02-23 18:47] LABS: ALT 16 U/L (4-34); AST 21 U/L (14-36); African American GFR (CKD) >90 (>60 ml/min/1.73 sqM); Blood Urea Nitrogen 6 mg/dL (7-17); LDH 458 U/L (313-618); Non-African American GFR(CKD) >90 (>60 ml/min/1.73 sqM); Uric Acid 5.2 mg/dL (3.7-7.4)
[2022-02-23 19:01] LABS: Basophils % (A) 0 %; Eosinophils # (A) 0.2 k/uL (0-0.7); Eosinophils % (A) 2 %; HCT 35.9 % (34.0-46.0); HGB 11.6 gm/dL (11.4-16.0); Hypochromasia Marked; Lymphocytes % (A) 19 %; MCH 27.2 pg (25.0-35.0); MCHC 32.2 g/dL (31.0-37.0); MCV 84.3 fL (80.0-100.0); Mean Platelet Volume 11.5; Monocytes # (A) 0.8 k/uL (0-1.0); Monocytes % (A) 7 %; Neutrophils # (A) 7.5 k/uL (1.3-7.7); Neutrophils % (A) 69 %; Platelet Count 222 k/uL (150-450); RBC 4.25 m/uL (3.80-5.40); RDW 13.3 % (11.5-15.5); WBC 10.8 k/uL (3.8-10.6)
[2022-02-23 19:22] VITALS: BP 148/92; PULSE 83; RESP 16; TEMP 97.9
--- NOTE | 2022-02-28 11:04 | P.MSEPDOC ---
Presenting Problems - Arrival Data Date of Arrival on Unit: 02/23/22 Time of Arrival on Unit: 17:11 Mode of Transport: Ambulatory - Complaint OB-Reason for Admission/Chief Complaint: PIH Medical History - Information : 4 Para: 2 Term: 1 : 1 Abortions: Spontaneous or Elective: 1 Number of Living Children: 1 - Gestational Age Gestational Age by GREGORIA (wks/days): 38 Weeks and 0 Days - History Complications: Prior Comment: PIH on labetalol Review of Systems - Review of Systems Constitutional: No problems Breast: No problems ENT: No problems Cardiovascular: No problems Respiratory: No problems Gastrointestinal: No problems Genitourinary: No problems Musculoskeletal: No problems Neurological: No problems Skin: No problems Vital Signs - Temperature Temperature: 97.9 F Temperature Source: Temporal Artery Scan - Pulse Right Sitting Pulse Rate: 83 Pulse Assessment Method: Automatic Cuff - Respirations Respiratory Rate: 16 Oxygen Delivery Method: Room Air - Blood Pressure Right Arm Blood Pressure: 148/92 Blood Pressure Mean: 110 Blood Pressure Source: Automatic Cuff Medical Screen Scoring - Assessment - Baby A Baseline FHR: 125 Heart Rate - NICHD Category: Category I (Normal) NST: Reactive Physician Notification - Physician Notified Physician Notified Date: 02/23/22 Physician Notified Time: 19:09 Physician: Gerald Sharma New Order Received: Yes (d/c home) Maternal Triage Index - Urgent/Priority 2 Urgent Priority 2: Yes Provider Notified: Gerald Sharma Provider Notified Time: 17:56 Criteria Met for Priority 2: bp 140s/80-90s, nausea, no other s/sx preeclampsia, on labetalol at home Disposition - Disposition OB Disposition: Discharge to home Discharge Date: 02/23/22 Discharge Time: 19:14 I agree with the RN Medical Screening Exam: Yes Physician's MSE Comment: I have neither seen nor examined the patient. Case reviewed; plan agreed upon as documented in EMR&OBIX.: Yes Diagnosis: RELATED CONDITIONS, UNSPECIFIED, THIRD TRIMESTER
== END 2022-02-23 19:14 | disposition home or self-care (01) ==
LOC: FBPOP 17:11
PROVIDERS: ATTEND Obstetrics & Gynecology
DX: O26.93 Pregnancy related conditions, unspecified, third trimester (principal); Z3A.38 38 weeks gestation of pregnancy; Z88.0 Allergy status to penicillin; Z91.040 Latex allergy status; F17.200 Nicotine dependence, unspecified, uncomplicated
CPT/HCPCS: 59025; 82565; 83615; 84450; 84460; 84520; 84550; 85025; 81001; G0463; 99215

== ENCOUNTER 2022-03-01 13:02 | Outpatient (CLI) | payer OTHER ==
[2022-03-01 14:00] VITALS: BP 133/83; PULSE 84; RESP 16; TEMP 98.4
--- NOTE | 2022-04-03 10:39 | P.MSEPDOC ---
Presenting Problems - Arrival Data Date of Arrival on Unit: 03/01/22 Time of Arrival on Unit: 13:15 Mode of Transport: Ambulatory - Complaint OB-Reason for Admission/Chief Complaint: Other Comment: cramping, headache Medical History - Information : 4 Para: 2 Term: 2 Abortions: Spontaneous or Elective: 1 Number of Living Children: 1 - Gestational Age Gestational Age by GREGORIA (wks/days): 38 Weeks and 6 Days - History Complications: Prior Review of Systems - Review of Systems Constitutional: No problems Breast: No problems ENT: No problems Cardiovascular: No problems Respiratory: No problems Gastrointestinal: No problems Genitourinary: No problems Musculoskeletal: No problems Neurological: No problems Skin: No problems Vital Signs - Temperature Temperature: 98.4 F - Pulse Pulse Oximetery Pulse Rate: 84 Pulse Assessment Method: Pulse Oximetry - Respirations Respiratory Rate: 16 Oxygen Delivery Method: Room Air - Blood Pressure Right Arm Blood Pressure: 133/83 Blood Pressure Mean: 99 Blood Pressure Source: Automatic Cuff Medical Screen Scoring - Cervical Exam Dilation (cm): 1.5 Effacement (%): 50 Station: -3 Membranes: Intact - Assessment - Baby A Baseline FHR: 135 Heart Rate - NICHD Category: Category I (Normal) NST: Reactive Physician Notification - Physician Notified Physician Notified Date: 03/01/22 Physician Notified Time: 13:50 Physician: Gerald Sharma Order Received: Yes - Notification Comment Comment: reported pts visit, headache, cramping, reactive nst with no contractions tracing, reported v/s and vag exam. orders discharge home, return for scheduled c-sections Maternal Triage Index - Maternal Triage Index Presenting for scheduled procedure w/no complaint: No - Stat/Priority 1 Stat Priority 1: No - Urgent/Priority 2 Urgent Priority 2: No - Prompt/Priority 3 Prompt Priority 3: No - Non-Urgent/Priority 4 Non-Urgent Priority 4: Yes Criteria Met for Priority 4: cramping headache Disposition - Disposition OB Disposition: Discharge to home Discharge Date: 03/01/22 Discharge Time: 13:59 I agree with the RN Medical Screening Exam: Yes Physician's MSE Comment: I have neither seen nor examined the patient. Case reviewed; plan agreed upon as documented in EMR&OBIX.: Yes Diagnosis: RELATED CONDITIONS, UNSPECIFIED, THIRD TRIMESTER
== END 2022-03-01 14:00 | disposition home or self-care (01) ==
LOC: FBPOP 13:02
PROVIDERS: ATTEND Obstetrics & Gynecology
DX: O26.893 Other specified pregnancy related conditions, third trimester (principal); Z3A.38 38 weeks gestation of pregnancy; R51.9 Headache, unspecified; R25.2 Cramp and spasm; Z88.0 Allergy status to penicillin; Z91.040 Latex allergy status; F17.200 Nicotine dependence, unspecified, uncomplicated
CPT/HCPCS: 59025; G0463; 99213

== ENCOUNTER 2022-03-04 09:58 | Inpatient (IN) | payer OTHER ==
[2022-03-04] MEDS ORDERED: METHYLERGONOVINE 0.2 MG/ML 1 ML AMP IM PRN (10:23)
[2022-03-04] MEDS ORDERED: CARBOPROST TROMETHAMINE 250 MCG/ML 1 ML AMP IM PRN (10:23)
[2022-03-04] MEDS ORDERED: OXYTOCIN 10 UNIT/ML 1 ML VIAL IM PRN (10:23)
[2022-03-04] MEDS ORDERED: LIDOCAINE 0.5% (PF) 5 MG/ML (50 ML SDV) SQ PRN (10:23)
[2022-03-04] MEDS ORDERED: TERBUTALINE 1 MG/ML VIAL SQ PRN (10:23)
[2022-03-04] MEDS ORDERED: CITRIC ACID-SODIUM CITRATE 15 ML CUP PO ONE (10:27)
[2022-03-04 11:02] LABS: Basophils # (A) 0.1 k/uL (0-0.2); Basophils % (A) 1 %; Eosinophils # (A) 0.3 k/uL (0-0.7); Eosinophils % (A) 2 %; HCT 31.7 % (34.0-46.0); Hypochromasia Marked; Lymphocytes # (A) 1.9 k/uL (1.0-4.8); Lymphocytes % (A) 16 %; MCH 26.3 pg (25.0-35.0); MCHC 31.7 g/dL (31.0-37.0); MCV 83.1 fL (80.0-100.0); Mean Platelet Volume 10.8; Monocytes # (A) 0.7 k/uL (0-1.0); Monocytes % (A) 6 %; Neutrophils # (A) 8.8 k/uL (1.3-7.7); Neutrophils % (A) 73 %; Platelet Count 250 k/uL (150-450); RBC 3.81 m/uL (3.80-5.40); RDW 13.9 % (11.5-15.5)
[2022-03-04] MEDS: LACTATED RINGERS 1,000 ML IV SCH ×3 (11:29→17:29)
[2022-03-04] MEDS ORDERED: KETOROLAC 15 MG/ML 1 ML VIAL ONE (12:06)
[2022-03-04] MEDS ORDERED: MORPHINE SULFATE (PF) 0.3 MG/0.3 ML SYR ONE (12:06)
[2022-03-04] MEDS ORDERED: OXYTOCIN 30 UNITS/500 ML NS BAG IV ONE (12:06)
[2022-03-04] MEDS ORDERED: NALBUPHINE 10 MG/ML (1 ML AMP) ONE (12:06)
[2022-03-04] MEDS ORDERED: SODIUM CHLORIDE 0.9% 100 ML BAG ONE (12:06)
[2022-03-04] MEDS ORDERED: ONDANSETRON 4 MG/2 ML VIAL ONE (12:06)
[2022-03-04] MEDS ORDERED: ePHEDrine 50 MG/ML 1 ML VIAL ONE (12:06)
[2022-03-04] MEDS ORDERED: ceFAZolin 1,000 MG VIAL ONE (12:06)
[2022-03-04 12:12] LABS: Amphetamine Screen,Urine Not Detected (NotDetected); Barbiturate Screen,Urine Not Detected (NotDetected); Benzodiazepines Screen,Urine Not Detected (NotDetected); Cocaine Screen,Urine Not Detected (NotDetected); Methadone Screen, Urine Not Detected (NotDetected); Opiate Screen,Urine Not Detected (NotDetected); Oxycodone Screen, Urine Not Detected (NotDetected); Phencyclidine Screen,Urine Not Detected (NotDetected); Tricyclic Antidepressant,Urine Not Detected (NotDetected); Urn Cannabinoid Scrn Not Detected (NotDetected)
[2022-03-04] MEDS ORDERED: METOCLOPRAMIDE 5 MG/ML 2 ML VIAL IVP PRN (13:07)
[2022-03-04] MEDS ORDERED: diphenhydrAMINE 50 MG/ML 1 ML VIAL IVP PRN (13:07)
[2022-03-04] MEDS ORDERED: ONDANSETRON 4 MG/2 ML VIAL IVP PRN (13:07)
[2022-03-04] MEDS ORDERED: ZOLPIDEM 5 MG TAB PO PRN (13:07)
[2022-03-04] MEDS ORDERED: diphenhydrAMINE 25 MG CAP PO PRN (13:07)
[2022-03-04] MEDS ORDERED: SIMETHICONE 80 MG CHEWABLE PO PRN (13:07)
[2022-03-04] MEDS ORDERED: KETOROLAC 15 MG/ML 1 ML VIAL IVP PRN (13:07)
[2022-03-04] MEDS ORDERED: NALOXONE 0.4 MG/ML 1 ML VIAL IV PRN (13:07)
[2022-03-04] MEDS ORDERED: diphenhydrAMINE 50 MG CAP PO PRN (13:07)
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
[2022-03-04] MEDS ORDERED: OXYTOCIN 30 UNITS/500 ML NS 30 UNIT in SALINE 1 500ML.BAG IV SCH (13:15)
--- NOTE | 2022-03-04 13:21 | P.OP ---
Date of Procedure: 03/04/22 Preoperative Diagnosis: #1. 39-0/7 weeks, previous section x2 #2. Gestational hypertension #3. Undesired fertility Postoperative Diagnosis: same Procedure(s) Performed: #1. Repeat low transverse section #2. Intraoperative bilateral tubal occlusion with Filshie clips Anesthesia: spinal Surgeon: Gerald Sharma Bib[employer] Professor #1: Sol Damon Estimated Blood Loss (ml): 530 IV fluids (ml): 1,000 Urine output (ml): 100 Pathology: none sent Condition: stable Disposition: floor Operative Findings: the patient was taken to the operating room where she was delivered of a viable 7 lbs. 8 oz. baby boy with Apgars of 8 at 1 minute and 9 at 5 minutes. There was a loose nuchal cord 1 which was reduced prior to delivering the body of the infant. There was a moderate amount of scarring primarily at the level of the fascia. The uterus itself did not demonstrate any significant thinning of the lower uterine segment was not overly scarred. The uterus, tubes, and ovaries were entirely normal to inspection. A Filshie clip was placed firmly across the isthmic portion of each fallopian tube after reconfirming the patient's desire for permanent sterilization. There was a moderate amount of losing at every level on the way out. Description of Procedure: the patient was taken the operating room where she was prepped and draped in the usual fashion after spinal anesthesia was administered by the anesthesiologist. A Pfannenstiel incision was made through pre-existing scar and extended into the abdominal cavity without difficulty though there was a moderate amount of scarring at the fascia. The bladder peritoneum was elevated, incised, and reflected distally. A 2 cm incision was made in the transverse plane of the lower uterine segment to enter the uterus at which time clear fluid and large amounts was noted. The incision was extended in both directions using the bandage scissors. The head was delivered up and through the incision wh ere the nose and mouth were thoroughly suctioned. A nuchal cord was noted and reduced. The was delivered onto the field where the cord was doubly clamped, cut, and the passed for resuscitative measures with weight and Apgars as noted above. The placenta was delivered manually, intact, and grossly normal with a grossly normal three-vessel cord. The uterus was exteriorized and the interior cavity of uterus swept of any remaining placental or membranous fragments. The margins of the uterine incision were grasped with Bernard clamps and the uterine incision closed in a single running locking stitch of 0 chromic catgut from margin to margin. Hemostasis appeared to be excellent. The posterior cul-de-sac was suctioned with a guard and then sponged with a laparotomy sponge. The uterine and ovarian findings were entirely normal as noted above. Confirmation of the patient's desire for permanent sterilization was undertaken and, following confirmation, a Filshie clip was placed firmly across the isthmic portion of each fallopian tube approximate 2-3 cm from the cornu of the uterus where they were firmly affixed. The uterus was replaced within the abdominal cavity and the gutters were swept of any remaining blood, fluid, or clot. The incision was reexamined and appeared to be hemostatic. The parietal peritoneum was loosely reapproximated and layer of muscles examined and made hemostatic. The fascia was then closed with 2 running stitches of 0 Vicryl from lateral margins to the midpoint. Prior to closure of the second side there appeared to be some moderate oozing. The Bovie was utilized to make hemostatic anything that was obvious and then Surgicel powder was applied to the muscle beds liberally as well as onto the uterine incision itself. Following this, the remainder the fascia was closed. The subcutaneous tissues were irrigated, made hemostatic with the Bovie, and reapproximated with a running stitch of 30 plain catgut from margin to margin. The skin was reapproximated with a running subcuticular stitch of 4-0 Vicryl followed by half-inch Steri-Strips placed with Mastisol. Quantitative blood loss for the case was 530 mL. There were no complications. All sponge, instrument, and needle counts were correct. The patient tolerated the procedure well and proceeded to the recovery room in stable condition. Both mother and are resting comfortably in recovery.
[2022-03-04] MEDS: LABETALOL 100 MG TAB PO SCH ×2 (15:53→19:48)
[2022-03-04] MEDS: diphenhydrAMINE 50 MG/ML 1 ML VIAL IVP PRN ×2 (16:04→22:08)
[2022-03-04] MEDS: ACETAMINOPHEN TAB 500 MG TAB PO SCH (17:48)
[2022-03-04] MEDS: SENNOSIDES-DOCUSATE SODIUM 1 EACH TAB PO SCH (19:47)
[2022-03-05] MEDS: IBUPROFEN 600 MG TAB PO SCH ×5 (00:22→21:08)
[2022-03-05] MEDS: LACTATED RINGERS 1,000 ML IV SCH ×4 (02:00→19:05)
[2022-03-05] MEDS: ACETAMINOPHEN TAB 500 MG TAB PO SCH ×5 (02:43→23:43)
--- NOTE | 2022-03-05 07:03 | P.PN ---
Progress Note - Text 03/05/22 638am 36-year-old female status post with spinal Duramorph. Patient seen and evaluated for postop pain can, patient has a VAS of 5 no complains of nausea vomiting. She does have pruritus which should subside soon
[2022-03-05 07:44] LABS: Basophils % (A) 0 %; Eosinophils # (A) 0.2 k/uL (0-0.7); Eosinophils % (A) 2 %; HCT 27.2 % (34.0-46.0); HGB 8.6 gm/dL (11.4-16.0); Hypochromasia Marked; Lymphocytes # (A) 1.4 k/uL (1.0-4.8); Lymphocytes % (A) 13 %; MCH 26.9 pg (25.0-35.0); MCHC 31.8 g/dL (31.0-37.0); MCV 84.5 fL (80.0-100.0); Monocytes % (A) 9 %; Neutrophils # (A) 8.1 k/uL (1.3-7.7); Neutrophils % (A) 74 %; Platelet Count 213 k/uL (150-450); RBC 3.22 m/uL (3.80-5.40); RDW 13.7 % (11.5-15.5); WBC 10.9 k/uL (3.8-10.6)
[2022-03-05] MEDS: SENNOSIDES-DOCUSATE SODIUM 1 EACH TAB PO SCH ×2 (08:38→20:36)
[2022-03-05] MEDS: LABETALOL 100 MG TAB PO SCH ×2 (08:39→20:37)
--- NOTE | 2022-03-05 10:48 | P.PNOBGPC ---
Subjective - Subjective Interval history: patient continues to have significant total body itching. Patient reports: Reports appetite normal, Reports voiding normally, Reports pain well controlled, Reports ambulating normally [place]: doing well Objective - Vital Signs Latest vital signs: Vital Signs Temp Pulse Resp BP Pulse Ox 03/05/22 08:00 98.3 F 83 16 134/78 03/05/22 03:37 97.9 F 83 16 159/86 98 03/05/22 00:00 98.0 F 72 18 154/80 97 03/04/22 20:00 97.7 F 74 18 155/91 98 03/04/22 18:01 79 20 150/84 03/04/22 15:02 83 16 151/78 03/04/22 14:37 95 16 164/77 03/04/22 14:12 77 16 150/88 03/04/22 13:55 86 16 147/83 03/04/22 13:42 88 16 146/82 03/04/22 13:27 82 16 141/72 03/04/22 13:12 97.3 F L 75 16 153/74 98 Intake and Output 03/04/22 03/05/22 03/05/22 22:59 06:59 14:59 Output Total 652 550 Balance -652 -550 Output: Urine 200 550 Uretheral (Nguyen) 200 Emesis 300 Output, Quantitative 152 Blood Loss Other: Voiding Method Indwelling Catheter - Exam Extremities: Present: normal Abdomen: Present: normal appearance, soft. Absent: distention, tenderness Incision: Present: normal, dry, intact Uterus: Present: normal, firm (uterine fundus is tonic and appropriately tender below the umbilicus.) - Labs Labs: Abnormal Lab Results - Last 24 Hours (Table) 03/04/22 03/05/22 Range/Units 10:37 07:12 WBC 12.0 H 10.9 H (3.8-10.6) k/uL RBC 3.22 L (3.80-5.40) m/uL Hgb 10.0 L D 8.6 L (11.4-16.0) gm/dL Hct 31.7 L 27.2 L (34.0-46.0) % Neutrophils # 8.8 H 8.1 H (1.3-7.7) k/uL Assessment and Plan (1) Family planning Current Visit: Yes Status: Acute Code(s): Z30.09 - ENCOUNTER FOR OTH GENERAL CNSL AND ADVICE ON CONTRACEPTION SNOMED Code(s): 599613263 (2) Previous section Current Visit: Yes Status: Acute Code(s): Z98.891 - HISTORY OF UTERINE SCAR FROM PREVIOUS SURGERY SNOMED Code(s): 100056463 (3) Term Current Visit: Yes Status: Acute Code(s): Z34.90 - ENCNTR FOR SUPRVSN OF NORMAL , UNSP, UNSP TRIMESTER SNOMED Code(s): 34716999 (4) Status post section Current Visit: Yes Status: Acute Code(s): Z98.891 - HISTORY OF UTERINE SCAR FROM PREVIOUS SURGERY SNOMED Code(s): 655449196 Plan: continue routine and postoperative care. I have ordered 1 dose of Nubain 10 mg to be given intramuscularly to combat the itching secondary to Duramorph. I have otherwise encouraged rambling the hallways routinely. I would anticipate discharge home tomorrow pending no complications.
[2022-03-05] MEDS ORDERED: NALBUPHINE 10 MG/ML (1 ML AMP) IM ONE (11:00)
[2022-03-06] MEDS: IBUPROFEN 600 MG TAB PO SCH ×2 (02:26→08:51)
[2022-03-06] MEDS: ACETAMINOPHEN TAB 500 MG TAB PO SCH (05:21)
[2022-03-06] MEDS: LABETALOL 100 MG TAB PO SCH (08:51)
[2022-03-06 08:57] VITALS: PULSE 83; RESP 14; TEMP 97
[2022-03-06 09:08] VITALS: BP 155/80
--- NOTE | 2022-03-06 09:55 | P.DS ---
Providers Date of admission: 03/04/22 09:58 Expected date of discharge: 03/06/22 Attending physician: Gerald Sharma Primary care physician: Stated None - Discharge Diagnosis(es) (1) Family planning Current Visit: Yes Status: Acute (2) Gestational hypertension Current Visit: Yes Status: Acute (3) Previous section Current Visit: Yes Status: Acute (4) Status post section Current Visit: Yes Status: Acute (5) Term Current Visit: Yes Status: Acute Hospital Course: This is a 36-year-old 4 now para 2112 woman who is admitted at 39 weeks gestation for scheduled repeat low transverse section with bilateral tubal ligation. Should a history of previous section 2 and desired permanent sterility. The was complicated by gestational hypertension for which she was being treated with labetalol. Following admission she went to the operating room where she underwent an uncomplicated repeat low transverse section with bilateral tubal ligation. Findings at the time of surgery were significant for a liveborn male weighing 7 lbs. 8 oz. with Apgars of 8 at 1 minute and 9 at 5 minutes. Please see the operative report for details. The patient's post operative course was unremarkable. She continued to have blood pressures in the 150s over 80s and her labetalol was restarted postoperatively. She had no other signs or symptoms of preeclampsia. Her postoperative day #1 hemoglobin was 8.6, down from admission hemoglobin of 10.0. She had no active bleeding. By postoperative day #2 she continued to do very well. Her incision was well healing. She had minimal lochia. She was ambulating and voiding without difficulty. Her blood pressures remain stable she was therefore discharged home on labetalol with routine instructions for postoperative care and follow-up. Procedures: Repeat low transverse section with bilateral tubal ligation Patient Condition at Discharge: Good Plan - Discharge Summary New Discharge Prescriptions: New Ibuprofen [Motrin] 600 mg PO Q6H PRN #30 tab PRN Reason: Pain Acetaminophen Tab [Tylenol] 1,000 mg PO Q6H tab Labetalol [Trandate] 100 mg PO BID tab No Action Pnv No.95/Ferrous Fum/Folic AC [ Multivitamin Tablet] 1 each PO DAILY Omeprazole Magnesium [PriLOSEC OTC] 1 tab PO DAILY Aspirin 1 tab PO DAILY Labetalol [Trandate] 100 mg PO BID Discharge Medication List Pnv No.95/Ferrous Fum/Folic AC [ Multivitamin Tablet] 1 each PO DAILY 05/03/19 [History] Aspirin 1 tab PO DAILY 02/08/22 [History] Omeprazole Magnesium [PriLOSEC OTC] 1 tab PO DAILY 02/08/22 [History] Labetalol [Trandate] 100 mg PO BID 02/23/22 [History] Acetaminophen Tab [Tylenol] 1,000 mg PO Q6H tab 03/06/22 [Rx] Ibuprofen [Motrin] 600 mg PO Q6H PRN #30 tab 03/06/22 [Rx] Labetalol [Trandate] 100 mg PO BID tab 03/06/22 [Rx]
== END 2022-03-06 11:21 | disposition home or self-care (01) | DRG 785 ==
LOC: 4FBP 09:58
PROVIDERS: ADMIT Obstetrics & Gynecology; ATTEND Obstetrics & Gynecology
PROC: 0UB70ZZ Excision of Bilateral Fallopian Tubes, Open Approach (ICD-10-PCS; 2022-03-04)
PROC: 10D00Z1 Extraction of Products of Conception, Low, Open Approach (ICD-10-PCS; principal; 2022-03-04 12:00)
DX: O13.4 Gestational [pregnancy-induced] hypertension without significant proteinuria, complicating childbirth (principal); F17.200 Nicotine dependence, unspecified, uncomplicated; J45.909 Unspecified asthma, uncomplicated; L29.9 Pruritus, unspecified; O34.211 Maternal care for low transverse scar from previous cesarean delivery; O69.81X0 Labor and delivery complicated by cord around neck, without compression, not applicable or unspecified; O99.334 Smoking (tobacco) complicating childbirth; O99.52 Diseases of the respiratory system complicating childbirth; Z30.2 Encounter for sterilization; Z37.0 Single live birth; Z3A.39 39 weeks gestation of pregnancy; Z79.82 Long term (current) use of aspirin
CPT/HCPCS: 80306; 85025; 86850; 86900; 86901